=== PATIENT | female | born 1980 | race Caucasian/White ===

== ENCOUNTER 2016-09-30 14:11 | Inpatient (IN) | payer OTHER ==
[~2016-09-30] VITALS: Ht 154.9 cm; Wt 80.0 kg
[~2016-09-30 14:11] MED LIST: BIOT1CAP3 PO; CALC-151 PO; CHOL10003 PO; HYDR2TAB13 PO; LEVO125T PO; LEVO1TAB29 PO; LYSI500T3 PO; MAGN250T PO
[2016-10-01] MEDS ORDERED: OXYTOCIN 30U/ 0.9% NaCL 500ML 500 ML IV ONE (00:31)
[2016-10-01] MEDS ORDERED: D5%-LACTATED RINGERS 1,000 ML IV SCH (00:31)
[2016-10-01] MEDS ORDERED: OXYTOCIN 30U/ 0.9% NaCL 500ML 500 ML IV PRN (00:31)
[2016-10-01] MEDS: LACTATED RINGERS 1,000 ML IV SCH ×7 (00:52→21:59)
[2016-10-01] MEDS ORDERED: MISOPROSTOL 25 MCG TABLET VG PRN (01:00)
[2016-10-01] MEDS ORDERED: TERBUTALINE 1 MG/ML, 1ML IVPush PRN (01:00)
[2016-10-01] MEDS ORDERED: FENTANYL PF 100 MCG/2ML IV PRN (01:00)
[2016-10-01] MEDS ORDERED: ONDANSETRON 2MG/ML, 2ML IVPush PRN (01:00)
[2016-10-01] MEDS ORDERED: CALCIUM CARBONATE 500 MG TAB.CHEW PO PRN (01:00)
[2016-10-01] MEDS ORDERED: MISOPROSTOL 25 MCG TABLET ONE (01:40)
[2016-10-01] MEDS ORDERED: LIDOCAINE 1%, 20ML ONE (07:39)
[2016-10-01] MEDS ORDERED: NEWBORN KIT ONE (07:40)
[2016-10-01] MEDS ORDERED: OXYTOCIN 30U/ 0.9% NaCL 500ML 500 ML ONE (07:40)
[2016-10-01] MEDS ORDERED: MISOPROSTOL 200 MCG TABLET ONE (07:40)
[2016-10-01] MEDS ORDERED: FENTANYL/BUPIV./NS/PF 250 ML EPIDCONT SCH ×2 (07:57→13:57)
[2016-10-01] MEDS ORDERED: NALOXONE 0.4 MG/ML, 1ML IVPush PRN ×2 (08:00→14:00)
[2016-10-01] MEDS ORDERED: LACTATED RINGERS 1,000 ML IVBOLUS PRN ×2 (08:00→14:00)
[2016-10-01] MEDS ORDERED: EPHEDRINE 50 MG/ML, 1ML IVPush PRN ×2 (08:00→14:00)
[2016-10-01] MEDS ORDERED: FENTANYL PF 100 MCG/2ML ONE ×3 (10:49→12:59)
[2016-10-01] MEDS: FENTANYL PF 100 MCG/2ML IVPush PRN ×3 (10:52→13:07)
[2016-10-01] MEDS ORDERED: FENTANYL/BUPIV./NS/PF 250 ML EPIDCONT ONE (13:59)
[2016-10-01] MEDS ORDERED: BUPIVACAINE/PF 0.25% ONE (13:59)
[2016-10-01] MEDS ORDERED: EPHEDRINE 50 MG/ML, 1ML ONE (15:40)
[2016-10-01] MEDS ORDERED: ONDANSETRON 2MG/ML, 2ML ONE (15:40)
[2016-10-02] MEDS ORDERED: CALCIUM CARBONATE 500 MG TAB.CHEW ONE (00:10)
[2016-10-02] MEDS ORDERED: FENTANYL PF 100 MCG/2ML ONE ×2 (00:34)
[2016-10-02] MEDS ORDERED: LACTATED RINGERS 1,000 ML IV SCH (00:35)
[2016-10-02] MEDS ORDERED: OXYTOCIN 30U/ 0.9% NaCL 500ML 500 ML IV SCH (00:35)
[2016-10-02] MEDS ORDERED: METOCLOPRAMIDE 5 MG/ML, 2ML ONE ×2 (00:36→16:22)
[2016-10-02] MEDS ORDERED: SODIUM CITRATE/CITRIC ACID 30 ML UDC ONE (00:36)
[2016-10-02] MEDS: LACTATED RINGERS 1,000 ML IV SCH ×7 (00:41→20:41)
[2016-10-02] MEDS: KETOROLAC 30 MG/1 ML IV SCH ×4 (01:00→19:58)
[2016-10-02] MEDS ORDERED: SODIUM CITRATE/CITRIC ACID 30 ML UDC PO ONE (01:00)
[2016-10-02] MEDS ORDERED: LABETALOL 5MG/ML, 20ML IV PRN (01:00)
[2016-10-02] MEDS ORDERED: DIPH,PERTUSS(ACELL),TET VAC/PF NC IM-VACC PRN (01:00)
[2016-10-02] MEDS ORDERED: METOCLOPRAMIDE 5 MG/ML, 2ML IV ONE (01:00)
[2016-10-02] MEDS ORDERED: LACTATED RINGERS 1,000 ML IVBOLUS ONE (01:00)
[2016-10-02] MEDS ORDERED: OXYcodone 5 MG/5 ML ORAL.SOL UDC PO PRN (01:00)
[2016-10-02] MEDS ORDERED: MEASLES,MUMPS&RUBELLA VACC/PF 0.5 ML SQ-VACC PRN (01:00)
[2016-10-02] MEDS ORDERED: ONDANSETRON 2MG/ML, 2ML IVPush PRN (01:00)
[2016-10-02] MEDS ORDERED: HYDROmorphone 1 MG/ML, 1ML IV PRN (01:00)
[2016-10-02] MEDS ORDERED: PROMETHAZINE 25 MG/ML, 1ML IV PRN (01:00)
[2016-10-02] MEDS ORDERED: EPHEDRINE 50 MG/ML, 1ML IVPush PRN (01:00)
[2016-10-02] MEDS ORDERED: MISOPROSTOL 200 MCG TABLET PR PRN (01:00)
[2016-10-02] MEDS ORDERED: hydrALAzine 20 MG/ML, 1ML IV PRN (01:00)
[2016-10-02] MEDS ORDERED: SIMETHICONE 80 MG CHEW TAB PO PRN (01:00)
[2016-10-02] MEDS ORDERED: MEPERIDINE/PF 25MG/0.5ML IVPush PRN (01:00)
[2016-10-02] MEDS ORDERED: RHOGAM FROM BLOOD BANK 1 NOTE EA IM/IV ONE (01:00)
[2016-10-02] MEDS ORDERED: HYDROcodone/APAP 7.5-325MG/15ML UDC PO PRN (01:00)
[2016-10-02] MEDS ORDERED: ALBUTEROL SULFATE 2.5 MG/3 ML NPPB PRN (01:00)
[2016-10-02] MEDS ORDERED: FENTANYL PF 100 MCG/2ML IV PRN (01:00)
[2016-10-02] MEDS ORDERED: ONDANSETRON 2MG/ML, 2ML IV PRN (01:00)
[2016-10-02] MEDS ORDERED: CALCIUM CARBONATE 500 MG TAB.CHEW PO PRN (01:00)
[2016-10-02] MEDS: OXYTOCIN 30U/ 0.9% NaCL 500ML 500 ML IV SCH ×3 (02:00→20:41)
[2016-10-02 04:25] VITALS: BP 98/58
[2016-10-02] MEDS: HYDROmorphone 2MG TABLET PO PRN ×2 (05:27→12:36)
[2016-10-02 07:10] VITALS: BP 99/60
[2016-10-02] MEDS: PRENATAL VIT/IRON/FA 1 EACH TABLET PO SCH (10:02)
[2016-10-02] MEDS: DOCUSATE 100 MG CAPSULE PO PRN ×2 (10:03→19:36)
[2016-10-02 12:00] VITALS: BP 100/62
[2016-10-02] MEDS: OXYcodone/APAP 5/325MG TABLET PO PRN ×3 (15:21→23:44)
[2016-10-02 15:56] VITALS: BP 105/61
[2016-10-02] MEDS ORDERED: DEXAMETHASONE 4 MG/ML, 1ML ONE (16:22)
[2016-10-02] MEDS ORDERED: PHENYLEPHRINE 10 MG/ML ONE (16:22)
[2016-10-02] MEDS ORDERED: OXYTOCIN 10 UNITS/ML, 1ML ONE (16:22)
[2016-10-02] MEDS ORDERED: CEFAZOLIN 1,000 MG ONE (16:22)
[2016-10-02] MEDS ORDERED: PROPOFOL 10 MG/ML, 20ML ONE (16:22)
[2016-10-02] MEDS ORDERED: ONDANSETRON 2MG/ML, 2ML ONE (16:22)
[2016-10-02] MEDS ORDERED: KETOROLAC 30 MG/1 ML ONE (16:22)
[2016-10-02 19:35] VITALS: BP 95/57
[2016-10-02 23:45] VITALS: BP 92/55
[2016-10-03] MEDS: LACTATED RINGERS 1,000 ML IV SCH ×3 (00:41→08:33)
[2016-10-03] MEDS: KETOROLAC 30 MG/1 ML IV SCH ×4 (02:06→21:38)
[2016-10-03] MEDS: OXYcodone/APAP 5/325MG TABLET PO PRN ×3 (05:20→15:01)
[2016-10-03] MEDS: OXYTOCIN 30U/ 0.9% NaCL 500ML 500 ML IV SCH (06:41)
[2016-10-03] MEDS: DOCUSATE 100 MG CAPSULE PO PRN ×2 (08:32→19:16)
[2016-10-03] MEDS: PRENATAL VIT/IRON/FA 1 EACH TABLET PO SCH (08:33)
[2016-10-03 08:40] VITALS: BP 91/54
[2016-10-03 19:05] VITALS: BP 93/62
[2016-10-03] MEDS: OXYcodone/APAP 10/325MG TABLET PO PRN (19:16)
[2016-10-04] MEDS: OXYcodone/APAP 10/325MG TABLET PO PRN ×4 (00:07→12:39)
[2016-10-04] MEDS: IBUPROFEN 600 MG TABLET PO PRN ×2 (04:02→12:39)
[2016-10-04 07:10] VITALS: BP 95/60
[2016-10-04] MEDS: DOCUSATE 100 MG CAPSULE PO PRN (08:21)
[2016-10-04] MEDS: PRENATAL VIT/IRON/FA 1 EACH TABLET PO SCH (08:21)
[2016-10-04] MEDS ORDERED: DOCU-30 PO (10:25)
[2016-10-04] MEDS ORDERED: IBUP-1222 PO (10:25)
[2016-10-04] MEDS ORDERED: OXYC-302 PO (10:26)
== END 2016-10-04 13:46 | disposition home or self-care (01) | DRG 766 ==
LOC: LDIP 23:26 → 2NW 10-02 04:00
PROVIDERS: ADMIT Obstetrics & Gynecology Gynecology; ATTEND Obstetrics & Gynecology Gynecology
PROC: 10D00Z1 Extraction of Products of Conception, Low, Open Approach (ICD-10-PCS; principal; 2016-10-02)
DX: O40.3XX0 Polyhydramnios, third trimester, not applicable or unspecified (principal); Z3A.39 39 weeks gestation of pregnancy; Z83.3 Family history of diabetes mellitus; Z82.49 Family history of ischemic heart disease and other diseases of the circulatory system; Z85.850 Personal history of malignant neoplasm of thyroid; O32.4XX0 Maternal care for high head at term, not applicable or unspecified; Z37.0 Single live birth; O76 Abnormality in fetal heart rate and rhythm complicating labor and delivery; O62.1 Secondary uterine inertia; O09.513 Supervision of elderly primigravida, third trimester; E89.0 Postprocedural hypothyroidism; O99.284 Endocrine, nutritional and metabolic diseases complicating childbirth
CPT/HCPCS: 36415; 82803; 85025; 86850; 86900; J0690; J1100; J1885; J2405; J2704; J3010; J3490; J2370; J2590; J2765; J7120; J7121